=== PATIENT | male | born 1950 | race Caucasian/White ===

== ENCOUNTER 2020-07-31 12:38 | Outpatient (REF) | payer MEDICARE, SELFPAY ==
[2020-07-31 12:51] VITALS: BP 154/74; PULSE 59; RESP 16; TEMP 36.4; O2SAT 97
[2020-07-31 12:52] VITALS: BMI 28.5
== END 2020-07-31 12:39 | disposition home or self-care (01) ==
LOC: HO.MS 12:38
PROVIDERS: Visit Provider Ophthalmology
PROC: (CPT 66821; principal; 2020-07-31 16:20)
DX: H26.492 Other secondary cataract, left eye (principal); Z96.1 Presence of intraocular lens; Z91.041 Radiographic dye allergy status; Z87.891 Personal history of nicotine dependence
CPT/HCPCS: 66821